=== PATIENT | female | born 1975 | race Caucasian/White ===

== ENCOUNTER 2017-08-25 20:45 | Emergency (ER) | payer BC, OTHER ==
--- NOTE | 2017-08-25 20:54 | UC ---
Throat Pain/Nasal [place] HPI - HPI Summary HPI Summary: 42 yo female presents with right ear pain that began 3 days ago. She tells me that she has a "bad wisdom tooth" on her right side and hates going to the dentist - so this could be the cause of her pain. Also she mentions that she was bit by a tick earlier today - tick was on her less than a few minutes. Denies fever, chills, headache, dizziness, sore throat, cough, SOB, chest pain, n/v. - History of Current Complaint Stated Complaint: ear ache/tick bite Time Seen by Provider: 08/25/17 20:53 Hx Obtained From: Patient Hx Last Menstrual Period: 10/17/15 Onset/Duration: Gradual Onset Severity: Mild Pain Intensity: 4 Pain Scale Used: 0-10 Numeric - Allergies/Home Medications Allergies/Adverse Reactions: Allergies Allergy/AdvReac Type Severity Reaction Status Date / Time ferumoxytol Allergy Palpitation Verified 08/25/17 20:50 s latex Allergy Itching Verified 08/25/17 20:50 NSAIDS (Non-Steroidal Allergy Unknown Verified 08/25/17 20:50 Anti-Inflamma Reaction Details Sulfa (Sulfonamide Allergy Rash Verified 08/25/17 20:50 Antibiotics) MUSHROOMS AdvReac Intermediate SEVER Uncoded 12/27/15 06:52 ABDOMINAL PAIN AND BLOATING. PMH/Surg Hx/FS Hx/Imm Hx - Additional Past Medical History Additional PMH: Gastric bypass Endocrine History: Hypothyroidism Psychological History: Anxiety - Surgical History Surgical History: Yes Surgery Procedure, Year, and Place: 2011 [place] KN[place] [facility] [place] [facility]IL[place] [facility] [place]TTAGE,[facility]. 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 Substance Use Type: None Smoking Status (MU): Former Smoker Type: Cigarettes Amount Used/How Often: PACK A DAY Length of Time of Smoking/Using Tobacco: 15 yrs Have You Smoked in the Last Year: No When Did the Patient Quit Smoking/Using Tobacco: 10 years ago Review of Systems Constitutional: Negative Skin: Other - Tick bite scalp Eyes: Negative ENT: Ear Ache Respiratory: Negative Cardiovascular: Negative Gastrointestinal: Negative Neurovascular: Negative Neurological: Negative Psychological: Negative All Other Systems Reviewed And Are Negative: Yes Physical Exam - Summary Physical Exam Summary: GENERAL: NAD. Obese SKIN: No rashes, sores, lesions, or open wounds. HEENT: Head: AT/NC Eyes: EOM intact. Conjunctiva clear without inflammation or discharge. Ears: Hearing grossly normal. B/L TM without erythema and bulging. No canal edema or drainage. Nose: Nasal mucosa pink and moist. NTTP maxillary and frontal sinus. Throat: Posterior oropharynx without exudates, erythema, or tonsillar enlargement. Uvula midline. NECK: Supple. Nontender. No lymphadenopathy. CHEST: CTAB. No r/r/w. No accessory muscle use. Breathing comfortably and in no distress. CV: RRR. Without m/r/g. Pulses intact. Brisk cap refill. NEURO: Alert. CN II-XII grossly intact. PSYCH: Age appropriate behavior. Triage Information Reviewed: Yes Vital Signs: Vital Signs: Temp Pulse Resp BP Pulse Ox 97.6 F 68 15 124/92 98 08/25/17 20:54 08/25/17 20:54 08/25/17 20:54 08/25/17 20:54 08/25/17 20:54 Dental: Positive: Gross Decay/Caries @ - Throughout. Negative: Percussion Tenderness @, Dental Fracture @, Abscess @, Cellulitis @, Cervical Lymphadenopathy, Bleeding Throat Pain/Nasal Course/Dx - Course Course Of Treatment: Suspect seasonal allergies or referred pain from her tooth. - Differential Dx/Diagnosis Provider Diagnoses: Seasonal allergies Discharge - Sign-Out/Discharge Documenting (check all that apply): Discharge/Admit/Transfer - Discharge Plan Condition: Stable Disposition: HOME Referrals: VERITO Cramer [Primary Care Provider] - Additional Instructions: If you develop a fever, shortness of breath, chest pain, new or worsening symptoms - please call your PCP or go to the ED. 1) May try OTC nasonex and Xyzal or Claritin for your for ear - Billing Disposition and Condition Condition: STABLE Disposition: HOME
[2017-08-25 21:01] VITALS: BP 124/92
== END 2017-08-25 21:16 | disposition home or self-care (01) ==
LOC: UCCORT 20:45
DX: J30.2 Other seasonal allergic rhinitis (principal); E03.9 Hypothyroidism, unspecified; F41.9 Anxiety disorder, unspecified; Z98.84 Bariatric surgery status; Z88.2 Allergy status to sulfonamides; Z88.6 Allergy status to analgesic agent; Z91.040 Latex allergy status; Z87.891 Personal history of nicotine dependence
CPT/HCPCS: 99212; G0463